=== PATIENT | female | born 1965 | race Caucasian/White ===

== ENCOUNTER 2017-01-26 01:52 | Observation (INO) | payer OTHER ==
--- NOTE | ~2017-01-26 | DS ---
Discharge Summary [facility] [address] [place]. [address] NAME: YEE ALLEN : 65 STATUS : DIS Narcisa PAT#: [id number] AGE: 51 ADM/REG DATE : 01/26/17 MR#: [id number] REPORT SERV DATE: 01/28/17 DICTATED BY: JAVI AGUSTIN DATE: 01/27/17 REPORT STATUS : Draft TRANSCRIBED BY: MODL DATE: 01/27/17 ADMISSION DATE: 01/26/2017 DISCHARGE DATE: 01/27/2017 DISCHARGE DIAGNOSES: 1. Syncope and fall. 2. Concussion. 3. Acute vertigo. 4. Thyroid mass. 5. Abdominal pain, resolved. 6. Mild elevated total bilirubin 1.5. 7. History of coronary artery disease and coronary artery bypass grafting. DISCHARGE MEDICATIONS: Aspirin 81 mg daily, Lipitor 20 mg daily, Coreg 6.25 mg p.o. twice a day, Altace 2.5 mg at bedtime, potassium chloride 10 mEq p.r.n., Lasix 20 mg daily p.r.n. for swelling, Benadryl 12.5 mg p.o. p.r.n. for allergies. HISTORY OF PRESENT ILLNESS: This is a very pleasant 51-year-old female, who originally presented to [facility] emergency room after a syncopal event, where she had some acute vertiginous symptoms and question of a postictal state. Please see the initial H and P of Dr. Adams Nelson as the patient is admitted to the Hospitalist Service for further evaluation and treatment. She underwent this listed imaging. A CTA of the chest showing some atherosclerotic changes in the left anterior descending artery, small hiatal hernia. No pulmonary embolus. Lungs were clear, but a suspected thyroid goiter. A CT of the brain that was within normal limits negative for any acute process. An EEG that showed no abnormality to suggest seizures or structural disorder; however, it did raise the possibility of sleep disorder. An MRI of the brain showing within normal limits. A gallbladder ultrasound that was negative within normal limits and a carotid ultrasound bilaterally that showed normal carotid blood flow, but there was a thyroid mass, solid 1.6 x 1.4 cm noted. CONTINUATION OF HOSPITAL COURSE: Now, the patient was seen by myself beginning 01/26/2017 after admission, where she was feeling somewhat better, although still complaining of some abdominal pain in the right lower quadrant which she was pointly tender. She did not have any dizziness or presyncope. Orthostatics were within normal limits. Her white blood cells had decreased down from 14 to 10, but given the slight elevation in her total bilirubin and point tenderness in the right lower quadrant, a gallbladder ultrasound was ordered, which did come back negative as described. The above-described EEG and MRI were performed and given her risk factors of early coronary artery disease, a carotid ultrasound was performed, which showed the incidental finding of a thyroid mass. She continued to do well, had some periodic and rapidly resolving confusion, likely from concussive syndrome from the fall, where she struck her head. I see no evidence of seizure at this time and as the patient was felt safe for discharge home on 01/27/2017, she will have an outpatient followup with ENT, Dr. Wiliam Camejo to further assess her thyroid mass and follow up with her primary care as prior schedule. She will resume her home medication regimen as described in the discharge MAR. I have updated the patient and the patient's family at bedside extensively. Questions Discharge Summary [address] [address] NAME: YEE ALLEN : 65 STATUS : DIS Narcisa PAT#: [id number] AGE: 51 ADM/REG DATE : 01/26/17 MR#: [id number] REPORT SERV DATE: 01/28/17 DICTATED BY: JAVI AGUSTIN DATE: 01/27/17 REPORT STATUS : Draft TRANSCRIBED BY: MODL DATE: 01/27/17 were answered and she is in agreement with this plan going forward. DICTATED BY: Javi Agustin NP [facility] [place] Javi Agustin NP / [id number] CC: MD PRAFUL Souza SUSAN
--- NOTE | ~2017-01-26 | HP ---
History And Physical [facility] [address] [place]. [address] NAME: YEE ALLEN : 65 STATUS : ADM Narcisa PAT#: [id number] AGE: 51 ADM/REG DATE : 01/26/17 MR#: [id number] REPORT SERV DATE: 01/26/17 DICTATED BY: RUSTY JOHNSON DATE: 01/26/17 REPORT STATUS : Draft TRANSCRIBED BY: MODUziel DATE: 01/26/17 DATE OF ADMISSION: 01/26/2017 CHIEF COMPLAINT: A 51-year-old female, presenting with syncope and vertigo. HISTORY OF PRESENTING ILLNESS: The patient's history was obtained through an interview with the patient, coupled with review of [facility] medical records. The patient states that she began to "feel really bad" on 01/24/2017 with epigastric abdominal pains and then pelvic cramps as well. Her last period was completed about a week ago, but she states that she has been having somewhat truly menopausal symptoms with irregular menstrual cycles and skipping many of her periods. She wonders if this is related to her episode today. But then, on the evening of 01/25/2017, she and her were packing, getting ready to go to [place], she had taken her night medications, and there was a possibility that she may have taken an extra dose of one of her medications on accident (?). She went to bed, but then could not sleep, so got up in the middle of the night to go to the kitchen, and she states "it hit me all of a sudden." She had sudden lightheadedness and then collapsed to the ground. She apparently did hit her head. The collapse to the ground caused such a noise that it awoke her 18-year-old son and he went to try to revive her and apparently she was passed out for about 10 minutes before she came to. There was no biting of the tongue. No loss of urine continence. No seizure-like activity, but when the patient woke up, she was clearly disoriented and confused for a prolonged period of time (may be as much as an hour). Also, after passing out, the patient developed new onset vertigo, it was quite severe with the room spinning with severe nausea, but no vomiting. No hemiparesis. No double vision. No dysarthria. No aphasia. She has just a slight headache, but not too severe. When she describes her pelvic cramps earlier this week, they are up to a 9/10 severity, but have completely subsided by the time of this presentation. After a passing out episode, she may have had a very momentary symptom of shortness of breath, but it has now subsided. No cough. REVIEW OF SYSTEMS: Otherwise, a 14-point review of systems was obtained and was negative. PAST MEDICAL HISTORY: 1. Systolic congestive heart failure. Ejection fraction 25% in 2010, but on a stress test in 2012, it improved to 52%. 2. Coronary artery disease, status post stent placement, under the care Dr. Gray. History And Physical [address] [address] NAME: YEE ALLEN : 65 STATUS : ADM Narcisa PAT#: [id number] AGE: 51 ADM/REG DATE : 01/26/17 MR#: [id number] REPORT SERV DATE: 01/26/17 DICTATED BY: RUSTY JOHNSON DATE: 01/26/17 REPORT STATUS : Draft TRANSCRIBED BY: LONNIE DATE: 01/26/17 3. Hypertension. 4. Elevated cholesterol. 5. Anxiety. 6. No lung disease. PAST SURGICAL HISTORY: 1. x2. 2. Bilateral inguinal hernia repair as a child. ALLERGIES: TO DEMEROL AND MORPHINE. SOCIAL HISTORY: She is . Has two sons, ages 18 and 21. The patient lives in [place], [place]. No tobacco abuse. No alcohol abuse. FAMILY HISTORY: Coronary artery disease. CURRENT MEDICATIONS: Aspirin 81 mg p.o. b.i.d., Lipitor 20 mg p.o. daily, Coreg 6.25 mg p.o. b.i.d., Benadryl p.r.n., Lasix 20 mg p.o. daily, potassium 10 mEq p.o. daily, Altace 2.5 mg p.o. daily. PHYSICAL EXAMINATION: VITAL SIGNS: Temperature 97.7, pulse 72, blood pressure 140/79, respiratory rate 16, O2 saturation 100% on room air. GENERAL: A pleasant, cooperative female, no evidence of acute distress. HEENT: Pupils equal, round, and reactive to light. No conjunctival pallor. No scleral icterus. Nares are patent. Oropharynx is clear of obstruction. Mildly dry mucous membranes. NEUROLOGIC: Cranial nerves II through XII are intact and symmetrical. She may have some slight right-sided nystagmus by exam. The patient has 5/5 strength in upper and lower extremities that is symmetrical. NECK: Trachea midline. No thyromegaly. LYMPH: No cervical lymphadenopathy. No supraclavicular lymphadenopathy. RESPIRATORY: Clear to auscultation at bases. No wheezes, rales, or rhonchi. Normal respiratory effort. CARDIOVASCULAR: Regular rate and rhythm. No murmurs, rubs, or gallops. No extremity edema is appreciated. ABDOMEN: Soft, nontender, nondistended. Normal bowel sounds auscultated throughout. No hepatosplenomegaly. DERMATOLOGICAL: Warm and dry extremities. No pallor. No cyanosis. PSYCHIATRIC: Normal affect. Good mood. Alert and oriented x3. LABORATORY DATA: Troponin negative. Brain natriuretic peptide 36. INR 1.1. White blood cell count 14.9, hemoglobin 14, hematocrit 39, platelets 331. Sodium 138, potassium 3.3, chloride 105, bicarb 23, BUN 21, creatinine 0.74, glucose 106. Urinalysis negative for infection. STUDIES: History And Physical [address] [address] NAME: YEE ALLEN : 65 STATUS : ADM Narcisa PAT#: [id number] AGE: 51 ADM/REG DATE : 01/26/17 MR#: [id number] REPORT SERV DATE: 01/26/17 DICTATED BY: RUSTY JOHNSON DATE: 01/26/17 REPORT STATUS : Draft TRANSCRIBED BY: [facility] DATE: 01/26/[address] angiogram of the chest shows no pulmonary embolism. No pneumonia. Some "shotty" axillary lymphadenopathy. 2. CT scan of the brain without contrast shows no acute abnormality. 3. EKG by my own evaluation shows sinus rhythm, no major abnormality. ASSESSMENT AND PLAN: 1. Syncope, unwitnessed. No significant warning. There was a significant postictal like phase though with new onset vertigo after the falls. We are going to check an MRI of the brain. Check an EEG. Check telemetry. Check orthostatics. 2. New vertigo. It seems to be improving over time though. Check an MRI of the brain p.r.n. meclizine. 3. Abdominal pain. Negative CT scan of the abdomen and pelvis. 4. History of coronary artery disease, but no chest pain. Negative EKG. Check telemetry. [facility]/MODL Rusty Johnson M.D. / [id number] CC: MD PRAFUL Souza SUSAN
--- NOTE | ~2017-01-26 | EEG ---
Electroencephalogram [facility] [address] [place]. [address] NAME: YEE ALLEN : 65 STATUS : ADM Narcisa PAT#: [id number] AGE: 51 ADM/REG DATE : 01/26/17 MR#: [id number] REPORT SERV DATE: 01/26/17 DICTATED BY: DEMETRIA GROSSMAN DATE: 01/26/17 REPORT STATUS : Draft TRANSCRIBED BY: MODL DATE: 01/26/17 EEG NUMBER: [id number]. LOCATION: She is in bed CDU, bed 13, done 01/26/2017. DESCRIPTION: This is an 18-channel digital EEG of a sleep-deprived (1 to 2 hours of sleep) 51-year-old. Evidently last night, she went to the kitchen, felt lightheaded, does not remember anything else. Her son heard a loud noise and found her on the ground, confused after. She is said to have a bruise between her right ear. The background reveals low voltage fast activity with a well-developed 10 cycle per second occipital alpha rhythm. Drowsiness was achieved with intermittent alpha intrusions, less as sleep went on. Snoring was not noted. Photic stimulation revealed driving at all frequencies. Hyperventilation evidently was not performed because of cardiac history. Nonfocal, nonlateralizing, nonparoxysmal. Sleep with vertex transients, spindles, K- complexes, and posterior occipital slow transients was well developed. EKG appeared to be sinus rhythm 60. IMPRESSION: NO ABNORMALITY NOTED IN AWAKE AND SLEEP EEG TO SUGGEST SEIZURES OR STRUCTURAL DISORDER. IT DOES NOT EXCLUDE THOSE POTENTIAL DIAGNOSES. SHE HAD SLEEP INTERRUPTED FREQUENTLY EARLY IN SLEEP AND LATER OCCASIONALLY BY ALPHA ACTIVITY, RAISING THE POSSIBILITY OF A SLEEP DISORDER. CLINICAL CORRELATION RECOMMENDED. /MODL Demetria Grossman M.D. / [id number] CC: MD Amber Souza
[~2017-01-26 01:52] MED LIST: ALTA2.5 PO; ASA5GR PO; BEN25 PO; COREG3 PO; COREG6 PO; HALF81 PO; KDUR20 PO; KLOR-CON M2020 MEQ PO; L20 PO; PLAVIX PO; ZOCOR20 PO
[2017-01-26 02:36] LABS: BASOPHILS 0.2 %; BASOPHILS ABSOLUTE 0.03 10/3/uL (0.0-0.16); EOSINOPHILS 0.9 %; EOSINOPHILS ABSOLUTE 0.13 10/3/uL (0.0-0.53); HEMATOCRIT 39.3 % (36.0-48.0); HEMOGLOBIN 13.6 g/dL (12.0-16.0); IMMATURE GRANULOCYTES 0.3 %; IMMATURE GRANULOCYTES ABSOLUTE 0.04 10/3/uL (0.0-0.11); LYMPHOCYTES 15.2 %; LYMPHOCYTES ABSOLUTE 2.26 10/3/uL (0.67-4.30); MEAN CORPUS HGB CONC 34.6 g/dL (32.0-36.0); MEAN CORPUSCULAR HEMOGLOB 30.6 pg (26.0-34.0); MEAN CORPUSCULAR VOLUME 88.3 fL (80-100); MEAN PLATELET VOLUME 10.7 fL (9.2-13.0); MONOCYTES ABSOLUTE 1.04 10/3/uL (0.21-1.20); NEUTROPHILS 76.4 %; PLATELET COUNT 331 10/3/uL (150-400); RBC DISTRIBUTION WIDTH 12.2 % (12.0-16.0); RED CELL COUNT 4.45 10/6/uL (4.0-5.6)
[2017-01-26 02:38] LABS: ER CBC TAT 0 Hrs 07 MinsNP; MANUAL DIFF NO %; WHITE BLOOD CELLS 14.9 10/3/uL (4.5-10.5)
[2017-01-26 02:44] LABS: INTERNATIONAL NORMAL RATI 1.1 UNITS (-); PARTIAL THROMBO TIME 27.1 SEC (22.5-37.2); PROTIME (NOT ORD) 14.2 SEC (12.0-14.5)
[2017-01-26 02:47] LABS: D-DIMER QUANTITATIVE 0.52 ug/mLFEU (< 0.50)
[2017-01-26 02:53] LABS: ASCORBIC ACID (UR NOT ORDER) NEG (NEG); BILIRUBIN, URINE NEGATIVE (NEG); ER URINALYSIS TAT 0 Hrs 00 Mins; KETONE, URINE TRACE MG/DL (NEG); LEUKOCYTE ESTERASE(NOT OR NEG (NEG); NITRITE (URINE) NEG (NEG); WBC (NOT ORDERED) (RFLEX) 1 (0-5)
[2017-01-26 02:55] LABS: CALCIUM, SERUM 8.9 MG/DL (8.5-10.4); CHEST PAIN PROFILE TAT 0 Hrs 24 Mins; CHLORIDE, SERUM 105 MMOL/L (96-112); CO2 (CARBON DIOXIDE) 23 MMOL/L (24-34); CREATININE 0.74 MG/DL (0.55-1.02); GFR AFRICAN AMERICAN 109 ML/MIN (>=60); GFR NON AFRICAN AMERICAN 94 ML/MIN (>=60); SODIUM, SERUM 138 MMOL/L (135-148); TROPONIN I <0.02 NG/ML (<0.05)
[2017-01-26 02:56] LABS: BUN (BLOOD UREA NITROGEN) 21 MG/DL (6-23); GLUCOSE, SERUM 106 MG/DL (60-99); POTASSIUM, SERUM 3.3 MMOL/L (3.5-5.3)
[2017-01-26] MEDS ORDERED: L20 PO (04:49)
[2017-01-26] MEDS ORDERED: COREG6 PO (04:50)
[2017-01-26] MEDS ORDERED: CRESTOR10 PO (04:51)
[2017-01-26] MEDS ORDERED: KLOR-CON 1010 MEQ PO (04:52)
[2017-01-26] MEDS ORDERED: BEN25 PO (04:52)
[2017-01-26] MEDS ORDERED: ASAB PO (04:53)
[2017-01-26] MEDS ORDERED: ALTA2.5 PO (04:53)
[2017-01-26 12:17] LABS: BASOPHILS 0.4 %; BASOPHILS ABSOLUTE 0.04 10/3/uL (0.0-0.16); HEMATOCRIT 39.7 % (36.0-48.0); HEMOGLOBIN 13.6 g/dL (12.0-16.0); IMMATURE GRANULOCYTES 0.2 %; IMMATURE GRANULOCYTES ABSOLUTE 0.02 10/3/uL (0.0-0.11); LYMPHOCYTES 28.2 %; LYMPHOCYTES ABSOLUTE 2.82 10/3/uL (0.67-4.30); MEAN CORPUS HGB CONC 34.3 g/dL (32.0-36.0); MEAN CORPUSCULAR HEMOGLOB 30.5 pg (26.0-34.0); MEAN PLATELET VOLUME 10.7 fL (9.2-13.0); MONOCYTES 10.4 %; MONOCYTES ABSOLUTE 1.04 10/3/uL (0.21-1.20); NEUTROPHILS 59.8 %; NEUTROPHILS ABSOLUTE 5.97 10/3/uL (2.02-8.40); PLATELET COUNT 325 10/3/uL (150-400); RBC DISTRIBUTION WIDTH 12.5 % (12.0-16.0); RED CELL COUNT 4.46 10/6/uL (4.0-5.6)
[2017-01-26 12:19] LABS: MANUAL DIFF NO %
[2017-01-26 12:23] LABS: INTERNATIONAL NORMAL RATI 1.2 UNITS (-); PARTIAL THROMBO TIME 36.2 SEC (22.5-37.2); PROTIME (NOT ORD) 14.9 SEC (12.0-14.5)
[2017-01-26 12:39] LABS: A/G RATIO 0.8 (0.7-1.9); ALBUMIN 3.3 G/DL (3.5-5.0); BUN (BLOOD UREA NITROGEN) 13 MG/DL (6-23); CALCIUM, SERUM 8.7 MG/DL (8.5-10.4); CHLORIDE, SERUM 108 MMOL/L (96-112); CO2 (CARBON DIOXIDE) 28 MMOL/L (24-34); CREATININE 0.79 MG/DL (0.55-1.02); GFR AFRICAN AMERICAN 100 ML/MIN (>=60); GFR NON AFRICAN AMERICAN 87 ML/MIN (>=60); GLOBULIN 4.3 G/DL (2.5-4.1); GLUCOSE, SERUM 88 MG/DL (60-99); POTASSIUM, SERUM 4.5 MMOL/L (3.5-5.3); SGPT(ALT) 28 U/L (5-65); SODIUM, SERUM 141 MMOL/L (135-148); TOTAL BILIRUBIN 1.5 MG/DL (0-1.2); TOTAL PROTEIN 7.6 G/DL (6.0-8.5); TROPONIN I <0.02 NG/ML (<0.05)
[2017-01-26 12:40] LABS: ALKALINE PHOSPHATASE 94 U/L (45-117); SGOT(AST) 23 U/L (5-40)
[2017-04-30] MEDS ORDERED: FLAG500TAB PO (15:59)
[2017-04-30] MEDS ORDERED: LEVAQUIN750 MG PO (16:00)
[2017-04-30] MEDS ORDERED: ZOFRAN ODT4 MG PO (16:03)
[2017-04-30] MEDS ORDERED: PCET PO (16:04)
[2017-04-30] MEDS ORDERED: MIRALAX POWDER1 PKT PO (16:05)
[2017-05-01] MEDS ORDERED: LIPITOR40 PO (02:02)
[2017-05-01] MEDS ORDERED: KLONO1 PO (02:03)
[2017-05-01] MEDS ORDERED: CELEXA40 MG PO (02:03)
[2017-05-01] MEDS ORDERED: XODOL 10-300 T1 EACH PO (02:04)
[2017-05-01] MEDS ORDERED: PRINZIDE1 TAB PO (02:05)
[2017-05-01] MEDS ORDERED: NORCO1 TA1 PO (02:05)
[2017-05-01] MEDS ORDERED: TOPXL100 PO (02:06)
== END 2017-01-27 14:53 | disposition home or self-care (01) ==
LOC: ER 01:52 → CDU1 05:11 → CDU2 06:35
PROVIDERS: Specialist; Student in an Organized Health Care Education/Training Program
DX: R55 Syncope and collapse (principal); S06.0X9A Concussion with loss of consciousness of unspecified duration, initial encounter; R42 Dizziness and giddiness; R10.9 Unspecified abdominal pain; I11.0 Hypertensive heart disease with heart failure; I50.20 Unspecified systolic (congestive) heart failure; E07.9 Disorder of thyroid, unspecified; I25.10 Atherosclerotic heart disease of native coronary artery without angina pectoris; Z95.5 Presence of coronary angioplasty implant and graft; E78.00 Pure hypercholesterolemia, unspecified; F41.9 Anxiety disorder, unspecified; Z98.891 History of uterine scar from previous surgery; Z98.890 Other specified postprocedural states; Z88.5 Allergy status to narcotic agent; Z82.49 Family history of ischemic heart disease and other diseases of the circulatory system; Z79.82 Long term (current) use of aspirin; Z79.899 Other long term (current) drug therapy
CPT/HCPCS: 70450; 70553; 71010; 71275; 76705; 80048; 80053; 81001; 83735; 83880; 84443; 84484; 85025; 85379; 85610; 85730; 93005; 93880; 95819; 96372; 99285; A9270-GY; A9577; G0378; J3360; Q9967